=== PATIENT | female | born 1995 | race African-American/Black ===

== ENCOUNTER 2017-05-14 16:38 | Emergency (ER) | payer MEDICAID ==
[~2017-05-14] VITALS: Ht 165.1 cm; Wt 50.0 kg
[2017-05-14] MEDS ORDERED: SODIUM CHLORIDE 0.9% 1,000 ML IV ONE ×2 (16:47)
[2017-05-14] MEDS ORDERED: LORAZEPAM 2MG/ML CPJ IV STA (16:47)
[2017-05-14] MEDS ORDERED: ACTIVATED CHARCOAL 50 G/240 ML TUBE PO ONE (17:00)
[2017-05-14 17:08] LABS: BG BASE EXCESS -4.4 mmol/L (-2.0-2.0); BG CARBOXYHEMOGLOBIN 0.3 % (0.5-1.5); BG DEOXYHEMOGLOBIN 3.2 % (0.0-5.0); BG HCO3 ACT 19.7 mmol/L (22.0-26.0); BG METHEMOGLOBIN 0.4 % (0.0-1.5); BG OXYGEN SATURATION 96.8 % (92.0-98.5); BG OXYHEMOGLOBIN 96.1 % (94.0-97.0); BG PCO2 32.9 mmHg (35.0-45.0); BG PH 7.395 (7.350-7.450); BG SAMPLE SITE RIGHT RADIAL; BG TOTAL HEMOGLOBIN 11.5 g/dL (12.0-18.0); BG VENT MODE ROOM AIR
[2017-05-14] MEDS ORDERED: SODIUM BICARBONATE 8.4% 1 MEQ/ML 50ML SYR IV ONE (17:15)
[2017-05-14 17:18] LABS: BASOPHILS % 1.7 % (0.0-2.0); EOSINOPHILS % 0.8 % (0.0-5.0); HEMATOCRIT. 29.7 % (36.0-48.0); HEMOGLOBIN. 9.9 g/dL (12.0-16.0); LYMPHOCYTES % 18.2 % (20.0-50.0); MEAN CORPUSCULAR HEMOGLOBIN 23.5 pg (28.0-32.0); MEAN CORPUSCULAR VOLUME 70.7 fL (81.0-99.0); NEUTROPHILS % 75.3 % (40.0-76.0); PLATELET 350 x1000/uL (130-400); RED CELL DISTRIBUTION WIDTH 16.1 % (11.6-14.6)
[2017-05-14 17:27] LABS: CHLORIDE 101 mEq/L (98-107)
[2017-05-14 17:28] LABS: CARBON DIOXIDE 27 mEq/L (21-32)
[2017-05-14 17:29] LABS: ETHANOL BLOOD < 10 mg/dL
[2017-05-14 17:30] LABS: INR 1.1
[2017-05-14 17:36] LABS: CREATINE KINASE 102 IU/L (26-192)
[2017-05-14 17:37] LABS: TROPONIN I < 0.02 ng/mL (0.00-0.04)
[2017-05-14 17:39] LABS: HCG SCREEN NEGATIVE
[2017-05-14] MEDS ORDERED: LORAZEPAM 2MG/ML CPJ IV ONE (19:15)
[2017-05-14 20:23] LABS: CLARITY URINE CLEAR (CLEAR); COLOR URINE YELLOW (YELLOW); GLUCOSE URINE NEGATIVE (NEGATIVE); KETONES URINE NEGATIVE (NEGATIVE); LEUKOCYTE ESTERASE URINE NEGATIVE (NEGATIVE); NITRITE URINE NEGATIVE (NEGATIVE); OCCULT BLOOD URINE 2+ (NEGATIVE); PROTEIN URINE NEGATIVE (NEGATIVE); SPECIFIC GRAVITY URINE 1.011 (1.005-1.030); UROBILINOGEN URINE 0.2 E.U./dL (0.2-1.0)
[2017-05-14] MEDS ORDERED: POTASSIUM CHLORIDE 20MEQ TABLET SR PO ONE (20:30)
[2017-05-14 20:35] LABS: *AMPHETAMINES SCREEN URINE NEGATIVE (NEGATIVE); *BARBITURATES SCREEN URINE NEGATIVE (NEGATIVE); *BENZODIAZEPINES SCREEN URINE NEGATIVE (NEGATIVE); *COCAINE SCREEN URINE NEGATIVE (NEGATIVE); CANNABINOID URINE SCREEN NEGATIVE (NEGATIVE); METHADONE URINE SCREEN NEGATIVE (NEGATIVE); OPIATES URINE SCREEN NEGATIVE (NEGATIVE); PHENCYCLIDINE URINE SCREEN NEGATIVE (NEGATIVE)
[2017-05-15 15:10] VITALS: BP 121/82
== END 2017-05-15 15:51 ==
LOC: ER 17:09
DX: T44.3X1A Poisoning by other parasympatholytics [anticholinergics and antimuscarinics] and spasmolytics, accidental (unintentional), initial encounter (principal); G92 Toxic encephalopathy; E87.6 Hypokalemia; R45.851 Suicidal ideations; F32.9 Major depressive disorder, single episode, unspecified; Y92.89 Other specified places as the place of occurrence of the external cause
CPT/HCPCS: 36415; 36600; 80053; 80305; 80307; 80329; 81001; 82375; 82550; 82805; 83880; 84443; 84484; 84703; 85025; 85610; 93005; 96365; 96375; 99285; G0482; J2060; J3490; Z7610; J7030

== ENCOUNTER 2017-07-17 02:58 | Emergency (ER) | payer MEDICAID ==
[~2017-07-17] VITALS: Ht 149.9 cm; Wt 54.0 kg
[2017-07-17] MEDS ORDERED: SODIUM CHLORIDE 0.9% 1,000 ML IV ONE (06:23)
[2017-07-17] MEDS ORDERED: ONDANSETRON HCL 4MG/2ML VIAL IV ONE (06:30)
[2017-07-17] MEDS ORDERED: FAMOTIDINE 20MG/2ML VIAL IV ONE (06:30)
[2017-07-17] MEDS ORDERED: KETOROLAC 30MG/ML VIAL IV ONE (06:30)
[2017-07-17 06:35] LABS: HEMATOCRIT. 35.6 % (36.0-48.0); HEMOGLOBIN. 11.4 g/dL (12.0-16.0); MEAN CORPUSCULAR HEMOGLOBIN 22.9 pg (28.0-32.0); MEAN CORPUSCULAR VOLUME 71.6 fL (81.0-99.0); MEAN PLATELET VOLUME 8.9 fl (7.4-10.4); PLATELET 281 x1000/uL (130-400); RED BLOOD CELL COUNT 4.97 mill/uL (4.2-5.4); RED CELL DISTRIBUTION WIDTH 17.7 % (11.6-14.6)
[2017-07-17 06:41] LABS: HCG SCREEN NEGATIVE; PARTIAL THROMBOPLASTIN TIME 21.8 sec (23.4-31.0); PROTHROMBIN TIME 10.4 sec (9.4-11.6)
[2017-07-17 06:46] LABS: CARBON DIOXIDE 29 mEq/L (21-32); CHLORIDE 104 mEq/L (98-107)
[2017-07-17 07:15] LABS: CLARITY URINE CLEAR (CLEAR); COLOR URINE YELLOW (YELLOW); GLUCOSE URINE NEGATIVE (NEGATIVE); KETONES URINE NEGATIVE (NEGATIVE); LEUKOCYTE ESTERASE URINE NEGATIVE (NEGATIVE); NITRITE URINE NEGATIVE (NEGATIVE); OCCULT BLOOD URINE NEGATIVE (NEGATIVE); PROTEIN URINE NEGATIVE (NEGATIVE); SPECIFIC GRAVITY URINE 1.013 (1.005-1.030); UROBILINOGEN URINE 0.2 E.U./dL (0.2-1.0)
[2017-07-17 07:28] LABS: PLATELET ESTIMATE NORMAL
[2017-07-17 07:29] LABS: *AMPHETAMINES SCREEN URINE NEGATIVE (NEGATIVE); *BARBITURATES SCREEN URINE NEGATIVE (NEGATIVE); *BENZODIAZEPINES SCREEN URINE NEGATIVE (NEGATIVE); *COCAINE SCREEN URINE NEGATIVE (NEGATIVE); CANNABINOID URINE SCREEN NEGATIVE (NEGATIVE); METHADONE URINE SCREEN NEGATIVE (NEGATIVE); OPIATES URINE SCREEN NEGATIVE (NEGATIVE); PHENCYCLIDINE URINE SCREEN NEGATIVE (NEGATIVE)
[2017-07-17 08:16] VITALS: BP 122/71
== END 2017-07-17 10:27 | disposition home or self-care (01) ==
LOC: ER 02:58
DX: R10.13 Epigastric pain (principal); R11.2 Nausea with vomiting, unspecified; R19.7 Diarrhea, unspecified; R03.0 Elevated blood-pressure reading, without diagnosis of hypertension; F17.200 Nicotine dependence, unspecified, uncomplicated; F12.10 Cannabis abuse, uncomplicated
CPT/HCPCS: 36415; 74022; 80053; 80305; 81003; 83690; 84703; 85025; 85610; 85730; 96361; 96374; 96375; 99285; J1885; J2405; J3490; J7030; Z7610

== ENCOUNTER 2017-09-15 08:36 | Emergency (ER) | payer MEDICAID ==
[~2017-09-15] VITALS: Ht 149.9 cm; Wt 55.0 kg
[2017-09-15] MEDS ORDERED: ACETAMINOPHEN 500MG TABLET PO ONE (10:45)
[2017-09-15 12:09] VITALS: BP 124/84
== END 2017-09-15 13:01 | disposition home or self-care (01) ==
LOC: ER 09:32
DX: J18.9 Pneumonia, unspecified organism (principal); J04.0 Acute laryngitis; Z87.891 Personal history of nicotine dependence; F12.90 Cannabis use, unspecified, uncomplicated
CPT/HCPCS: 71045; 87070; 87430; 99285

== ENCOUNTER 2018-01-13 13:58 | Emergency (ER) | payer SELFPAY ==
[~2018-01-13] VITALS: Ht 149.9 cm; Wt 54.0 kg
[2018-01-13] MEDS ORDERED: FLUCONAZOLE 100MG TABLET PO ONE (18:15)
[2018-01-13 20:44] VITALS: BP 138/75
== END 2018-01-13 20:51 | disposition home or self-care (01) ==
LOC: ER 15:50
DX: B37.3 Candidiasis of vulva and vagina (principal); F12.10 Cannabis abuse, uncomplicated
CPT/HCPCS: 99283

== ENCOUNTER 2018-03-16 15:36 | Emergency (ER) | payer OTHER ==
[~2018-03-16] VITALS: Ht 152.4 cm; Wt 57.0 kg
[2018-03-16 16:11] LABS: CLARITY URINE CLOUDY (CLEAR); COLOR URINE YELLOW (YELLOW); KETONES URINE NEGATIVE (NEGATIVE); LEUKOCYTE ESTERASE URINE 2+ (NEGATIVE); NITRITE URINE POSITIVE (NEGATIVE); OCCULT BLOOD URINE NEGATIVE (NEGATIVE); PROTEIN URINE NEGATIVE (NEGATIVE); SPECIFIC GRAVITY URINE 1.019 (1.005-1.030); UROBILINOGEN URINE 0.2 E.U./dL (0.2-1.0)
[2018-03-16 19:15] VITALS: BP 122/80
== END 2018-03-16 19:16 | disposition home or self-care (01) ==
LOC: ER 15:36
DX: N30.80 Other cystitis without hematuria (principal); F12.10 Cannabis abuse, uncomplicated
CPT/HCPCS: 81003; 99283

== ENCOUNTER 2018-09-05 10:08 | Emergency (ER) | payer MEDICAID, OTHER ==
[~2018-09-05] VITALS: Ht 149.9 cm; Wt 56.0 kg
[2018-09-05] MEDS ORDERED: FAMOTIDINE 20MG/2ML VIAL IV STA (14:49)
[2018-09-05] MEDS ORDERED: SODIUM CHLORIDE 0.9% 1,000 ML IV ONE (14:49)
[2018-09-05] MEDS ORDERED: MAGNESIUM/ALUMINUM HYDROXIDE/SIMETHICONE 30ML UDC PO STA (14:49)
[2018-09-05] MEDS ORDERED: KETOROLAC 30MG/ML VIAL IV STA (14:49)
[2018-09-05 15:42] LABS: CHLORIDE 100 mEq/L (98-107)
[2018-09-05 15:43] LABS: BASOPHILS % 0.3 % (0.0-2.0); EOSINOPHILS % 0.2 % (0.0-5.0); HEMATOCRIT. 37.2 % (36.0-48.0); HEMOGLOBIN. 12.4 g/dL (12.0-16.0); LYMPHOCYTES % 17.2 % (20.0-50.0); MEAN CORPUSCULAR HEMOGLOBIN 26.8 pg (28.0-32.0); MEAN CORPUSCULAR VOLUME 80.5 fL (81.0-99.0); MEAN PLATELET VOLUME 9.3 fl (7.4-10.4); MONOCYTES % 5.7 % (2.0-8.0); NEUTROPHILS % 76.6 % (40.0-76.0); PLATELET 359 x1000/uL (130-400); RED BLOOD CELL COUNT 4.62 mill/uL (4.2-5.4); RED CELL DISTRIBUTION WIDTH 15.1 % (11.6-14.6)
[2018-09-05 15:59] LABS: HCG SCREEN NEGATIVE
[2018-09-05 16:00] LABS: CLARITY URINE CLEAR (CLEAR); COLOR URINE YELLOW (YELLOW); KETONES URINE NEGATIVE (NEGATIVE); LEUKOCYTE ESTERASE URINE NEGATIVE (NEGATIVE); NITRITE URINE NEGATIVE (NEGATIVE); OCCULT BLOOD URINE NEGATIVE (NEGATIVE); PH URINE 6.5 (4.5-8.0); PROTEIN URINE NEGATIVE (NEGATIVE); SPECIFIC GRAVITY URINE 1.002 (1.005-1.030); UROBILINOGEN URINE 0.2 E.U./dL (0.2-1.0)
[2018-09-05 16:27] VITALS: BP 128/60
== END 2018-09-05 17:36 | disposition home or self-care (01) ==
LOC: ER 10:08
DX: K80.20 Calculus of gallbladder without cholecystitis without obstruction (principal); R10.13 Epigastric pain; F12.10 Cannabis abuse, uncomplicated; R11.10 Vomiting, unspecified
CPT/HCPCS: 36415; 76700; 80053; 81003; 81025; 83690; 84703; 85025; 96361; 96374; 96375; 99284; J1885; J3490; J7030

== ENCOUNTER 2018-09-06 14:37 | Inpatient (IN) | payer MEDICAID ==
[~2018-09-06] VITALS: Ht 154.9 cm; Wt 54.4 kg
[2018-09-06] MEDS ORDERED: SODIUM CHLORIDE 0.9% 1000ML BAG (SEPSIS BOLUS) IV ONE (16:45)
[2018-09-06] MEDS ORDERED: FENTANYL CITRATE/PF 50MCG/ML 2ML VIAL IV ONE (17:00)
[2018-09-06] MEDS ORDERED: ONDANSETRON HCL 4MG/2ML INJ IV ONE (17:00)
[2018-09-06 17:28] LABS: BASOPHILS % 0.4 % (0.0-2.0); EOSINOPHILS % 0.1 % (0.0-5.0); HEMATOCRIT. 35.5 % (36.0-48.0); HEMOGLOBIN. 11.9 g/dL (12.0-16.0); LYMPHOCYTES % 11.3 % (20.0-50.0); MEAN CORPUSCULAR HEMOGLOBIN 27.1 pg (28.0-32.0); MEAN CORPUSCULAR VOLUME 80.4 fL (81.0-99.0); MEAN PLATELET VOLUME 9.1 fl (7.4-10.4); MONOCYTES % 5.7 % (2.0-8.0); NEUTROPHILS % 82.5 % (40.0-76.0); PLATELET 361 x1000/uL (130-400); RED BLOOD CELL COUNT 4.41 mill/uL (4.2-5.4); RED CELL DISTRIBUTION WIDTH 15.1 % (11.6-14.6)
[2018-09-06 17:31] LABS: CHLORIDE 102 mEq/L (98-107)
[2018-09-06 17:35] LABS: PROTHROMBIN TIME 10.3 sec (9.1-11.1)
[2018-09-06 17:36] LABS: ETHANOL BLOOD < 10 mg/dL
[2018-09-06 18:02] LABS: CLARITY URINE CLEAR (CLEAR); COLOR URINE YELLOW (YELLOW); KETONES URINE NEGATIVE (NEGATIVE); LEUKOCYTE ESTERASE URINE NEGATIVE (NEGATIVE); NITRITE URINE NEGATIVE (NEGATIVE); OCCULT BLOOD URINE NEGATIVE (NEGATIVE); PH URINE 7.5 (4.5-8.0); PROTEIN URINE NEGATIVE (NEGATIVE); SPECIFIC GRAVITY URINE 1.009 (1.005-1.030); UROBILINOGEN URINE 0.2 E.U./dL (0.2-1.0)
[2018-09-06] MEDS ORDERED: ENOXAPARIN 60MG/0.6ML SYR SUBCUT ONE (18:30)
[2018-09-06 18:40] LABS: *AMPHETAMINES SCREEN URINE NEGATIVE (NEGATIVE); *BARBITURATES SCREEN URINE NEGATIVE (NEGATIVE); *BENZODIAZEPINES SCREEN URINE NEGATIVE (NEGATIVE); *COCAINE SCREEN URINE NEGATIVE (NEGATIVE); METHADONE URINE SCREEN NEGATIVE (NEGATIVE)
[2018-09-06 18:41] LABS: OPIATES URINE SCREEN NEGATIVE (NEGATIVE); PHENCYCLIDINE URINE SCREEN NEGATIVE (NEGATIVE)
[2018-09-06 18:45] LABS: CANNABINOID URINE SCREEN PRESUMTIVE POSITIVE (NEGATIVE)
[2018-09-06] MEDS ORDERED: ACETAMINOPHEN 325MG TABLET PO PRN (19:00)
[2018-09-06] MEDS ORDERED: CLONIDINE 0.1MG TABLET PO PRN (19:00)
[2018-09-06] MEDS ORDERED: IOHEXOL-350 100 ML BOTTLE ONE (19:03)
[2018-09-06 19:11] LABS: BG CARBOXYHEMOGLOBIN 0.3 % (0.5-1.5); BG DEOXYHEMOGLOBIN 3.4 % (0.0-5.0); BG FRACTION INSPIRED OXYGEN 21; BG HCO3 ACT 21.8 mmol/L (22.0-26.0); BG METHEMOGLOBIN 0.2 % (0.0-1.5); BG OXYGEN SATURATION 96.6 % (92.0-98.5); BG OXYHEMOGLOBIN 96.1 % (94.0-97.0); BG PCO2 38.1 mmHg (35.0-45.0); BG PH 7.375 (7.350-7.450); BG PO2 96.3 mmHg (75.0-100.0); BG SAMPLE SITE RIGHT RADIAL; BG TOTAL HEMOGLOBIN 11.8 g/dL (12.0-18.0); BG VENT MODE ROOM AIR
[2018-09-07] VITALS (12 sets, daily range): BP systolic 106–157; BP diastolic 50–99
[2018-09-07] MEDS ORDERED: FAMO-135 MT (01:26)
[2018-09-07] MEDS ORDERED: IBUP-2028 MT (01:26)
[2018-09-07] MEDS ORDERED: HYDROCODONE/ACETAMINOPHEN 5/325MG TABLET PO PRN (05:30)
[2018-09-07] MEDS: OMEPRAZOLE 20MG CAPSULE EXTENDED RELEASE PO SCH (05:55)
[2018-09-07] MEDS: ENOXAPARIN 60MG/0.6ML SYR SUBCUT SCH ×2 (05:57→17:33)
[2018-09-07 06:40] LABS: CHLORIDE 106 mEq/L (98-107)
[2018-09-07] MEDS: ONDANSETRON HCL 4MG/2ML INJ IV PRN ×3 (06:43→19:19)
[2018-09-07] MEDS: HYDROMORPHONE HCL/PF 2MG/ML CPJ IV PRN ×3 (06:46→19:19)
[2018-09-07 06:50] LABS: BASOPHILS % 0.5 % (0.0-2.0); EOSINOPHILS % 0.3 % (0.0-5.0); HEMATOCRIT. 33.3 % (36.0-48.0); HEMOGLOBIN. 11.1 g/dL (12.0-16.0); LYMPHOCYTES % 28.9 % (20.0-50.0); MEAN CORPUSCULAR HEMOGLOBIN 27.1 pg (28.0-32.0); MEAN CORPUSCULAR VOLUME 81.4 fL (81.0-99.0); MEAN PLATELET VOLUME 9.3 fl (7.4-10.4); MONOCYTES % 6.3 % (2.0-8.0); PLATELET 306 x1000/uL (130-400); RED BLOOD CELL COUNT 4.09 mill/uL (4.2-5.4); RED CELL DISTRIBUTION WIDTH 15.1 % (11.6-14.6)
[2018-09-07] MEDS ORDERED: POTASSIUM CHLORIDE 20MEQ TABLET SR PO ONE (08:30)
[2018-09-07] MEDS ORDERED: POTASSIUM CHLORIDE 20MEQ TABLET SR PO NR (08:45)
[2018-09-07] MEDS: AMLODIPINE 5MG TABLET PO SCH (10:41)
[2018-09-07] MEDS ORDERED: IPRATROPIUM/ALBUTEROL 0.5-3(2.5)MG/3ML NEB HHN PRN (10:45)
[2018-09-07] MEDS ORDERED: IPRATROPIUM/ALBUTEROL 0.5-3(2.5)MG/3ML NEB HHN SCH (12:00)
[2018-09-07] MEDS: METOCLOPRAMIDE HCL 10MG TABLET PO SCH ×2 (17:43→23:02)
[2018-09-08] VITALS (9 sets, daily range): BP systolic 111–149; BP diastolic 58–90
[2018-09-08] MEDS: ONDANSETRON HCL 4MG/2ML INJ IV PRN ×2 (04:01→10:03)
[2018-09-08] MEDS: HYDROMORPHONE HCL/PF 2MG/ML CPJ IV PRN ×2 (04:01→09:57)
[2018-09-08] MEDS: OMEPRAZOLE 20MG CAPSULE EXTENDED RELEASE PO SCH ×2 (05:39→05:49)
[2018-09-08] MEDS: METOCLOPRAMIDE HCL 10MG TABLET PO SCH ×2 (05:40→11:44)
[2018-09-08] MEDS: ENOXAPARIN 60MG/0.6ML SYR SUBCUT SCH (05:40)
[2018-09-08 06:46] LABS: BASOPHILS % 0.4 % (0.0-2.0); EOSINOPHILS % 0.4 % (0.0-5.0); HEMATOCRIT. 36.2 % (36.0-48.0); HEMOGLOBIN. 12.1 g/dL (12.0-16.0); LYMPHOCYTES % 18.1 % (20.0-50.0); MEAN CORPUSCULAR HEMOGLOBIN 26.9 pg (28.0-32.0); MEAN CORPUSCULAR VOLUME 80.9 fL (81.0-99.0); MEAN PLATELET VOLUME 9.1 fl (7.4-10.4); MONOCYTES % 5.8 % (2.0-8.0); NEUTROPHILS % 75.3 % (40.0-76.0); PLATELET 349 x1000/uL (130-400); RED BLOOD CELL COUNT 4.48 mill/uL (4.2-5.4); RED CELL DISTRIBUTION WIDTH 14.9 % (11.6-14.6)
[2018-09-08 06:56] LABS: CHLORIDE 101 mEq/L (98-107)
[2018-09-08] MEDS: AMLODIPINE 5MG TABLET PO SCH (07:55)
[2018-09-08] MEDS ORDERED: RIVAROXABAN 15 MG TABLET PO SCH (17:00)
== END 2018-09-08 17:35 | disposition home or self-care (01) | DRG 241 ==
LOC: ER 14:55 → 3WST 18:27 → EDBEDREQTM 18:29 → EDBEDREQ 18:29 → ENRESERV 23:37
PROVIDERS: ADMIT Internal Medicine; ATTEND Internal Medicine
DX: K29.70 Gastritis, unspecified, without bleeding (principal); J96.00 Acute respiratory failure, unspecified whether with hypoxia or hypercapnia; I26.99 Other pulmonary embolism without acute cor pulmonale; D64.9 Anemia, unspecified; E87.6 Hypokalemia; I10 Essential (primary) hypertension; D25.9 Leiomyoma of uterus, unspecified; F12.90 Cannabis use, unspecified, uncomplicated; K21.9 Gastro-esophageal reflux disease without esophagitis; K27.9 Peptic ulcer, site unspecified, unspecified as acute or chronic, without hemorrhage or perforation; F31.9 Bipolar disorder, unspecified; F41.9 Anxiety disorder, unspecified; K76.0 Fatty (change of) liver, not elsewhere classified; K80.20 Calculus of gallbladder without cholecystitis without obstruction; Z82.49 Family history of ischemic heart disease and other diseases of the circulatory system; Z83.3 Family history of diabetes mellitus
CPT/HCPCS: 36415; 36600; 71045; 71275; 74177; 76700; 76830; 76856; 80048; 80076; 80305; 82375; 82805; 83605; 83735; 83880; 84145; 84484; 86850; 86900; 93005; 96361; 96374; 96375; 99291; G0482; J1170; J1650; J2405; J3010; J7030; J8597; Q9967

== ENCOUNTER 2022-10-09 13:57 | Emergency (ER) | payer MEDICAID ==
[~2022-10-09] VITALS: Ht 154.9 cm; Wt 55.0 kg
[~2022-10-09 13:57] MED LIST: FAMO-135 MT
[2022-10-09] MEDS ORDERED: LORAZEPAM 2MG/ML CPJ IM ONE (15:00)
[2022-10-09] MEDS ORDERED: HALOPERIDOL LACTATE 5MG/ML VIAL IM ONE (15:00)
[2022-10-09 16:01] LABS: HEMATOCRIT. 34.9 % (36.0-48.0); HEMOGLOBIN. 11.8 g/dL (12.0-16.0); MEAN CORPUSCULAR HEMOGLOBIN 29.6 pg (28.0-32.0); MEAN CORPUSCULAR VOLUME 87.6 fL (81.0-99.0); PLATELET 292 x1000/uL (130-400); RED BLOOD CELL COUNT 3.98 mill/uL (4.2-5.4); RED CELL DISTRIBUTION WIDTH 11.8 % (11.6-14.6)
[2022-10-09 16:16] LABS: CHLORIDE 106 mEq/L (98-107)
[2022-10-09 16:17] LABS: PLATELET ESTIMATE NORMAL
[2022-10-09 16:25] LABS: ETHANOL BLOOD < 10 mg/dL
[2022-10-09] MEDS ORDERED: POTASSIUM CHLORIDE 20MEQ TABLET SR PO ONE (16:30)
[2022-10-09 16:31] LABS: HCG SCREEN NEGATIVE
[2022-10-09 18:14] LABS: CLARITY URINE CLOUDY (CLEAR); COLOR URINE RED (YELLOW); KETONES URINE TRACE (NEGATIVE); LEUKOCYTE ESTERASE URINE 1+ (NEGATIVE); NITRITE URINE NEGATIVE (NEGATIVE); OCCULT BLOOD URINE 3+ (NEGATIVE); PH URINE 5.5 (4.5-8.0); PROTEIN URINE 2+ (NEGATIVE); SPECIFIC GRAVITY URINE 1.016 (1.005-1.030)
[2022-10-09 18:28] LABS: *AMPHETAMINES SCREEN URINE NEGATIVE (NEGATIVE); *BARBITURATES SCREEN URINE NEGATIVE (NEGATIVE); *BENZODIAZEPINES SCREEN URINE NEGATIVE (NEGATIVE); *COCAINE SCREEN URINE NEGATIVE (NEGATIVE); METHADONE URINE SCREEN NEGATIVE (NEGATIVE); OPIATES URINE SCREEN NEGATIVE (NEGATIVE); PHENCYCLIDINE URINE SCREEN NEGATIVE (NEGATIVE)
[2022-10-09 18:30] LABS: CANNABINOID URINE SCREEN PRESUMTIVE POSITIVE (NEGATIVE)
[2022-10-09] MEDS ORDERED: CEFTRIAXONE SODIUM 1 G/VIAL IM ONE (19:30)
[2022-10-09] MEDS ORDERED: LIDOCAINE HCL 1% 20ML VIAL (Pyxis) INJ INFIL ONE (19:30)
[2022-10-10] MEDS ORDERED: CEPH500C2 MT (11:26)
[2022-10-10 11:44] VITALS: BP 120/67
== END 2022-10-10 11:47 | disposition home or self-care (01) ==
LOC: ER 13:57
DX: R45.851 Suicidal ideations (principal); N30.00 Acute cystitis without hematuria; F12.10 Cannabis abuse, uncomplicated; I49.9 Cardiac arrhythmia, unspecified; Z20.822 Contact with and (suspected) exposure to COVID-19
CPT/HCPCS: 36415; 80053; 80305; 80307; 80320; 80329; 81003; 84703; 85025; 87426; 93005; 96372; 99285; C9803; J0696; J1630; J2060; J3490; Z7610; G0480

== ENCOUNTER 2024-05-30 01:12 | Emergency (ER) | payer MEDICAID ==
[~2024-05-30] VITALS: Ht 149.9 cm; Wt 48.0 kg
[~2024-05-30 01:12] MED LIST changes: +CEPH500C2 MT
[2024-05-30 01:30] VITALS: O2SAT 100
[2024-05-30] MEDS ORDERED: LORAZEPAM 2MG/ML INJ IM ONE (02:00)
[2024-05-30] MEDS ORDERED: OLANZAPINE 10 MG/VIAL IM ONE (02:00)
[2024-05-30 02:12] LABS: BASOPHILS % 0.5 % (0.0-2.0); DIFFERENTIAL COMMENT 0; EOSINOPHILS % 0.1 % (0.0-5.0); HEMATOCRIT. 36.9 % (36.0-48.0); HEMOGLOBIN. 11.9 g/dL (12.0-16.0); MEAN CORPUSCULAR HEMOGLOBIN 25.4 pg (28.0-32.0); MEAN CORPUSCULAR HGB CONC 32.3 g/dL (31.0-37.0); MEAN CORPUSCULAR VOLUME 78.6 fL (81.0-99.0); MEAN PLATELET VOLUME 8.8 fl (7.4-10.4); MONOCYTES % 5.5 % (2.0-8.0); NEUTROPHILS % 80.9 % (40.0-76.0); PLATELET 307 x1000/uL (130-400); RED BLOOD CELL COUNT 4.69 mill/uL (4.2-5.4); RED CELL DISTRIBUTION WIDTH 21.6 % (11.6-14.6); WHITE BLOOD COUNT 6.6 x1000/uL (4.5-11.0)
[2024-05-30 02:13] LABS: CHLORIDE 105 mEq/L (98-107); POTASSIUM 3.1 mEq/L (3.5-5.1); SODIUM 140 mEq/L (136-145)
[2024-05-30 02:14] LABS: CALCIUM 9.8 mg/dL (8.7-10.4); CARBON DIOXIDE 25 mEq/L (21-32)
[2024-05-30 02:19] LABS: GLUCOSE 150 mg/dL (70-105)
[2024-05-30 02:20] LABS: HCG SCREEN NEGATIVE
[2024-05-30 02:21] LABS: ACETAMINOPHEN 3 ug/mL (10-30); ALANINE AMINOTRANSFERASE < 7 IU/L (10-49); ASPARTATE AMINOTRANSFERASE 13 IU/L (<34); BILIRUBIN TOTAL 0.3 mg/dL (0.1-1.0); PROTEIN TOTAL 7.1 g/dL (6.0-8.3)
[2024-05-30 02:24] LABS: BILIRUBIN DIRECT < 0.1 mg/dL (<=3.0); ETHANOL BLOOD < 10 mg/dL (<10); UREA NITROGEN BLOOD < 5 mg/dL (9-23)
[2024-05-30 02:36] LABS: ALBUMIN 4.7 g/dL (3.2-4.8)
[2024-05-30] MEDS: LORAZEPAM 2MG/ML INJ IM NR (02:43)
[2024-05-30] MEDS: OLANZAPINE 10 MG/VIAL IM NR (02:43)
[2024-05-30] MEDS: POTASSIUM CHLORIDE 20MEQ/PACKET PO ONE (03:26)
[2024-05-30 07:35] LABS: CLARITY URINE CLEAR (CLEAR); COLOR URINE YELLOW (YELLOW); GLUCOSE URINE NEGATIVE (NEGATIVE); KETONES URINE NEGATIVE (NEGATIVE); LEUKOCYTE ESTERASE URINE NEGATIVE (NEGATIVE); NITRITE URINE NEGATIVE (NEGATIVE); OCCULT BLOOD URINE NEGATIVE (NEGATIVE); PROTEIN URINE NEGATIVE (NEGATIVE); SPECIFIC GRAVITY URINE 1.006 (1.005-1.030); UROBILINOGEN URINE 0.2 E.U./dL (0.2-1.0)
[2024-05-30 08:16] LABS: *AMPHETAMINES SCREEN URINE NEGATIVE (NEGATIVE); *BARBITURATES SCREEN URINE NEGATIVE (NEGATIVE); *BENZODIAZEPINES SCREEN URINE NEGATIVE (NEGATIVE); *COCAINE SCREEN URINE NEGATIVE (NEGATIVE); CANNABINOID URINE SCREEN PRESUMPTIVE POSITIVE (NEGATIVE); ECSTASY MDMA SCREEN URINE NEGATIVE (NEGATIVE); METHADONE URINE SCREEN NEGATIVE (NEGATIVE); OPIATES URINE SCREEN NEGATIVE (NEGATIVE); PHENCYCLIDINE URINE SCREEN NEGATIVE (NEGATIVE)
[2024-05-30] MEDS: ARIPIPRAZOLE 5MG TABLET PO SCH (09:27)
[2024-05-30] MEDS: LEVETIRACETAM 500MG TABLET PO ONE (20:26)
[2024-05-30] MEDS: TRAZODONE HCL 50MG TABLET PO SCH (21:37)
[2024-05-31 07:38] VITALS: BP 152/99; PULSE 104; RESP 18; TEMP 37.28076; O2SAT 99
== END 2024-05-31 07:53 ==
LOC: ER 01:12
DX: R45.851 Suicidal ideations (principal); F23 Brief psychotic disorder; F41.9 Anxiety disorder, unspecified; I10 Essential (primary) hypertension; F31.9 Bipolar disorder, unspecified; Z20.822 Contact with and (suspected) exposure to COVID-19
CPT/HCPCS: 80076; 80305; 80048; 81003; 80307; 80329; 80320; 84703; 85025; 36415; 96372; 99285; 87426; J3490; J2060; G0480

== ENCOUNTER 2024-08-17 06:00 | Emergency (ER) | payer MEDICAID, OTHER ==
[2024-08-17 06:11] VITALS: PULSE 100; RESP 16; O2SAT 100
[2024-08-17] MEDS ORDERED: ACETAMINOPHEN 500MG TABLET PO ONE (08:00)
== END 2024-08-17 08:06 | disposition left against medical advice (07) ==
LOC: ER 06:00
DX: M25.571 Pain in right ankle and joints of right foot (principal); M25.561 Pain in right knee; Z53.21 Procedure and treatment not carried out due to patient leaving prior to being seen by health care provider

== ENCOUNTER 2025-02-21 21:44 | Emergency (ER) | payer OTHER ==
[~2025-02-21] VITALS: Ht 170.2 cm; Wt 78.0 kg
[~2025-02-21 21:44] MED LIST changes: +PRAZ2CAP2 PO; +SERT-422 PO; +TOPUD PO
[2025-02-21 21:47] VITALS: O2SAT 99
[2025-02-21] MEDS: SODIUM CHLORIDE 0.9% 500 ML IV ONE (22:15)
[2025-02-21] MEDS: KETOROLAC 30MG/ML VIAL IV STA (23:17)
[2025-02-21] MEDS: ONDANSETRON HCL 4MG/2ML INJ IV STA (23:17)
[2025-02-21 23:40] LABS: HEMATOCRIT. 32.1 % (36.0-48.0); HEMOGLOBIN. 10.2 g/dL (12.0-16.0); MEAN PLATELET VOLUME 8.4 fl (7.4-10.4); PLATELET 390 x1000/uL (130-400); RED BLOOD CELL COUNT 4.46 mill/uL (4.2-5.4); RED CELL DISTRIBUTION WIDTH 18.1 % (11.6-14.6)
[2025-02-21 23:52] LABS: HCG SCREEN NEGATIVE
[2025-02-21 23:58] LABS: CREATININE 1.3 mg/dL (0.6-1.0); UREA NITROGEN BLOOD 9 mg/dL (9-23)
[2025-02-22] LABS: BILIRUBIN TOTAL 0.4 mg/dL (0.1-1.0); PROTEIN TOTAL 7.8 g/dL (6.0-8.3)
[2025-02-22 02:03] LABS: CLARITY URINE CLEAR (CLEAR); COLOR URINE YELLOW (YELLOW); PH URINE 5.5 (4.5-8.0); PROTEIN URINE 1+ (NEGATIVE); SPECIFIC GRAVITY URINE 1.050 (1.005-1.030)
[2025-02-22 02:04] LABS: GLUCOSE URINE NEGATIVE (NEGATIVE); KETONES URINE 2+ (NEGATIVE); LEUKOCYTE ESTERASE URINE TRACE (NEGATIVE); NITRITE URINE NEGATIVE (NEGATIVE); OCCULT BLOOD URINE 2+ (NEGATIVE); UROBILINOGEN URINE 0.2 E.U./dL (0.2-1.0)
[2025-02-22 02:31] LABS: SQUAMOUS EPITHELIAL CELL URINE 3+ /lpf (RARE/1+)
[2025-02-22] MEDS ORDERED: ACET-2708 MT (02:31)
[2025-02-22 02:32] LABS: BACTERIA URINE TRACE; RBC URINE 0-2 /hpf (0-2); YEAST URINE 1+
[2025-02-22] MEDS ORDERED: FLUC150T46 MT (02:39)
[2025-02-22 02:52] VITALS: BP 148/80; PULSE 84; RESP 16; TEMP 37.3; O2SAT 99
[2025-02-22 03:48] LABS: LYMPHOCYTES % MANUAL 4.0 % (20.0-60.0); NEUTROPHILS % MANUAL 96.0 % (45.0-75.0)
[2025-02-22 03:49] LABS: PLATELET ESTIMATE NORMAL
[2025-02-22] MEDS ORDERED: IOHEXOL-300 100 ML BOTTLE ONE (04:02)
[2025-02-23] MEDS ORDERED: IBUP-2029 MT (01:45)
[2025-02-23] MEDS ORDERED: FAMO-135 MT (01:45)
[2025-02-23] MEDS ORDERED: OMEP20TA23 MT (01:58)
== END 2025-02-22 02:53 | disposition home or self-care (01) ==
LOC: ER 21:44
DX: K80.20 Calculus of gallbladder without cholecystitis without obstruction (principal); R19.00 Intra-abdominal and pelvic swelling, mass and lump, unspecified site; F12.90 Cannabis use, unspecified, uncomplicated; J45.909 Unspecified asthma, uncomplicated; F20.9 Schizophrenia, unspecified; Z86.018 Personal history of other benign neoplasm; Z79.899 Other long term (current) drug therapy
CPT/HCPCS: 80053; 84703; 83690; 85025; 36415; 96361; 96374; 96375; 99285; 81003; 74177; J1885; J2405; J7030; Z7610 ×5; Q9967; A4606

== ENCOUNTER 2025-02-22 19:33 | Emergency (ER) | payer OTHER ==
[~2025-02-22] VITALS: Ht 160 cm; Wt 69.0 kg
[~2025-02-22 19:33] MED LIST changes: +ACET-2708 MT; +FLUC150T46 MT
[2025-02-22 20:29] VITALS: O2SAT 100
[2025-02-22 21:31] LABS: CREATININE 1.4 mg/dL (0.6-1.0); UREA NITROGEN BLOOD 7.0 mg/dL (9-23)
[2025-02-22 21:33] LABS: BASOPHILS % 0.3 % (0.0-2.0); EOSINOPHILS % 0.6 % (0.0-5.0); HEMATOCRIT. 36.0 % (36.0-48.0); HEMOGLOBIN. 11.1 g/dL (12.0-16.0); LYMPHOCYTES % 8.3 % (20.0-50.0); MEAN PLATELET VOLUME 8.9 fl (7.4-10.4); MONOCYTES % 5.1 % (2.0-8.0); NEUTROPHILS % 85.7 % (40.0-76.0); PLATELET 497 x1000/uL (130-400); RED BLOOD CELL COUNT 4.86 mill/uL (4.2-5.4); RED CELL DISTRIBUTION WIDTH 18.2 % (11.6-14.6)
[2025-02-22] MEDS ORDERED: DICYCLOMINE 10 MG/5 ML ORAL SYR PO STA (22:35)
[2025-02-22 23:16] LABS: ASPARTATE AMINOTRANSFERASE 48 IU/L (<34); BILIRUBIN DIRECT 0.2 mg/dL (<=3.0); BILIRUBIN TOTAL 0.6 mg/dL (0.1-1.0); PROTEIN TOTAL 8.1 g/dL (6.0-8.3)
[2025-02-22] MEDS: PANTOPRAZOLE 40MG DR TABLET PO ONE (23:30)
[2025-02-22] MEDS: KETOROLAC 30MG/ML VIAL IV STA (23:34)
[2025-02-22] MEDS: MAGNESIUM/ALUMINUM HYDROXIDE/SIMETHICONE 30ML UDC PO STA (23:34)
[2025-02-22] MEDS: ONDANSETRON HCL 4MG/2ML INJ IV STA (23:34)
[2025-02-22] MEDS: FAMOTIDINE 20MG TABLET PO ONE (23:34)
[2025-02-22] MEDS: SODIUM CHLORIDE 0.9% 1,000 ML IV ONE (23:34)
[2025-02-22] MEDS: DICYCLOMINE HCL 10MG CAPSULE PO SCH (23:35)
[2025-02-22 23:43] LABS: HCG SCREEN NEGATIVE
[2025-02-23] MEDS ORDERED: IBUP-2029 MT (01:45)
[2025-02-23] MEDS ORDERED: FAMO-135 MT (01:45)
[2025-02-23] MEDS ORDERED: OMEP20TA23 MT (01:58)
[2025-02-23 02:06] VITALS: BP 155/92; PULSE 84; RESP 16; TEMP 36.8; O2SAT 100
== END 2025-02-23 02:08 | disposition home or self-care (01) ==
LOC: ER 19:33
DX: K80.70 Calculus of gallbladder and bile duct without cholecystitis without obstruction (principal); E84.9 Cystic fibrosis, unspecified; F12.90 Cannabis use, unspecified, uncomplicated; Z79.899 Other long term (current) drug therapy; Z98.890 Other specified postprocedural states
CPT/HCPCS: 99285; 96374; 76700; 96361; 96375; 80076; 80048; 84703; 83690; 85025; 36415; J1885; J2405; J7030